=== PATIENT | female | born 1940 | race Asian ===

== ENCOUNTER 2018-11-24 16:24 | Inpatient (IN) | payer BC, OTHER ==
[~2018-11-24] VITALS: Ht 147.3 cm; Wt 49.0 kg
[2018-11-24 20:08] LABS: ABSOLUTE NEUTROPHILS 6.1 thou/uL (1.4-8.2); BASOPHILS 1.1 % (0.0-2.0); HEMATOCRIT 36.7 % (37.0-47.0); HEMOGLOBIN 12.5 gm/dL (12.0-15.0); LYMPHOCYTES 24.5 % (24.0-44.0); MCHC 33.9 g/dL (28.0-37.0); MCV 85.4 fL (80.0-100.0); MONOCYTES 3.4 % (1.0-8.0); PLATELET COUNT 215 thou/uL (150-400); RDW 12.8 % (10.5-14.5); WBC 8.6 thou/uL (4.0-11.0)
[2018-11-24 20:16] LABS: ANION GAP 10 mmol/L (7-16); BUN 20 mg/dL (7-18); CALCIUM 9.6 mg/dL (8.5-10.1); CHLORIDE 104 mmol/L (98-107); CO2 25 mmol/L (21-32); CREATININE 1.1 mg/dL (0.6-1.0); GLUCOSE 115 mg/dL (74-106); POTASSIUM 4.2 mmol/L (3.5-5.1); SODIUM 139 mmol/L (136-145)
[2018-11-24 20:31] LABS: ALBUMIN 4.1 g/dL (3.4-5.0); MAGNESIUM 2.3 mg/dL (1.8-2.4); SGOT 25 U/L (15-37); SGPT 27 U/L (30-65); TOTAL BILIRUBIN 0.8 mg/dL (<0.1-1.0); TOTAL PROTEIN 8.6 g/dL (6.4-8.2); TROPONIN-I <0.06 ng/mL (<0.06)
[2018-11-24 21:20] VITALS: BP 133/69
[2018-11-24 21:33] VITALS: BP 112/55
[2018-11-24 21:46] VITALS: BP 122/52
[2018-11-24 23:29] LABS: INR 2.6; PROTIME 26.6 Seconds (9.3-11.4)
[2018-11-25] MEDS ORDERED: AMLODIPINE BESY10 MG PO (00:17)
[2018-11-25] MEDS ORDERED: COZAAR 50 MG TA50 MG PO (00:18)
[2018-11-25] MEDS ORDERED: LOPRESSOR50 PO (00:19)
[2018-11-25] MEDS ORDERED: COUMADIN 2 MG TA2 M1 PO (00:19)
[2018-11-25] MEDS ORDERED: SIMVASTATIN40 MG PO (00:20)
[2018-11-25] MEDS ORDERED: FISH OIL 1,001000 M2 PO (00:20)
[2018-11-25] MEDS ORDERED: CENTRUM SILVER1 EAC4 PO (00:20)
[2018-11-25] MEDS ORDERED: VITAMIN D3400 UNIT PO ×2 (00:21)
[2018-11-25] MEDS ORDERED: ASPIR 8181 MG PO (00:22)
--- NOTE | 2018-11-25 02:28 | NUR ---
paitent is alert and oriented. patient is a fall risk. patients bp have been steady. patients shoulder pain improve with ice pack. CT and xray were both negative. patient is nsr on tele. patient is pending echo and carotid us. patient is resting comfortably in bed. bed alarm on. patient is progressing to gao. wc. patient is sba.
[2018-11-25 03:30] VITALS: BP 128/65
[2018-11-25 07:30] VITALS: BP 122/65
[2018-11-25 08:41] LABS: HEMATOCRIT 34.7 % (37.0-47.0); HEMOGLOBIN 11.6 gm/dL (12.0-15.0); MCH 28.8 pg (26.0-34.0); MCHC 33.5 g/dL (28.0-37.0); MCV 85.9 fL (80.0-100.0); RBC 4.05 mil/uL (4.20-5.00); RDW 12.9 % (10.5-14.5); WBC 7.1 thou/uL (4.0-11.0)
[2018-11-25 08:57] LABS: ANION GAP 9 mmol/L (7-16); BUN 13 mg/dL (7-18); CHLORIDE 106 mmol/L (98-107); CO2 25 mmol/L (21-32); GLUCOSE 98 mg/dL (74-106); POTASSIUM 3.9 mmol/L (3.5-5.1); SODIUM 140 mmol/L (136-145); TROPONIN-I <0.06 ng/mL (<0.06)
--- NOTE | 2018-11-25 11:11 | EKG ---
[place] [address] [address] [facility] [place] [address] ELECTROCARDIOGRAM REPORT Name: CARLOS MOHAN Room #: 357-P ADM IN M.R.#: [id number] ������������������ Admission: 11/24/18 ������������������ Attend Phys: Jonathan Nickerson MD Discharge: ������������������ Date of : 38 Report #: [id number] ����������������������������������������������������������������� [id number] THIS REPORT FOR: //name// [facility] ED Test Date: 2018-11-24 Test Time: 16:51:08 Pat Name: CARLOS MOHAN Department: Room: [facility] Gender: F [employer]ator: [place] : 1940 Requested By: Gene Vivas Order Number: [id number] MD: Horacio Iglesias Measurements Intervals [place] Rate: 65 P: 23 VA: 153 QRS: -4 QRSD: 97 T: 3 QT: 410 QTc: 427 Interpretive Statements Sinus rhythm Inferior infarct, old No previous ECG available for comparison Electronically Signed On 11-25-2018 11:11:09 CDT by Horacio Iglesias [email or web address] ��������������������������������������������� <ELECTRONICALLY SIGNED> ���������������������������������������� By: Horacio Iglesias MD, [facility] ��������������������������������������������� 11/25/18 1111 1651 50 Horacio Iglesias MD, FACC /EPI
--- NOTE | 2018-11-25 11:43 | 2DMMODE ---
[facility] [place] [address] 2 D/M-MODE ECHOCARDIOGRAM Name: GUSMannyCLAIRECARLOS A Room #: 357-P ADM IN M.R.#: [id number] ������������� Admission: 11/24/18 ������������� Attend Phys: Jonathan Nickerson, Discharge: ��� ������������� ��� Date of : 38 Date of Service: 11/25/18 1142 �� Report #: [id number] �������� ��������������������������������������������[id number] THIS REPORT FOR: //name// APPROVED REPORT Study performed: 11/25/2018 10:32:05 EXAM: Comprehensive 2D, Doppler, and color-flow Echocardiogram Patient Location: Bedside Room #: 357 Status: routine BSA: 1.40 HR: 74 bpm BP: 122/65 mmHg Rhythm: NSR Other Information Study Quality: Good Indications Syncope Hx: NE, PAF, HTN, HLP. 2D Dimensions RVDd: 27.93 mm IVSd: 8.17 (7-11mm) LVOT Diam: 19.16 (18-24mm) LVDd: 40.91 mm PWd: 8.17 (7-11mm) Ascending Ao: 30.98 (22-36mm) LVDs: 24.78 (25-40mm) Aortic Root: 28.57 mm Volumes Left Atrial Volume (Systole) Single Plane 4CH: 25.96 mL Single Plane 2CH: 22.55 mL LA ESV Index: 19.00 mL/m2 Aortic Valve AoV Peak Mikael.: 1.93 m/s AO Peak Gr.: 14.89 mmHg LVOT Max P.25 mmHg LVOT Max V: 1.25 m/s DOUG Vmax: 1.87 cm2 Mitral Valve E/A Ratio: 0.7 MV Decel. Time: 164.22 ms [facility] [place] [address] [address] [place] [address] 2 D/M-MODE ECHOCARDIOGRAM Name: GUSMannyCLAIRECARLOS Ilir Room #: 357-P [facility] IN ..#: [id number] ������������� Admission: 11/24/18 ������������� Attend Phys: Jonathan Nickerson, Discharge: ��� ������������� ��� Date of : 38 Date of Service: 11/25/18 1142 �� Report #: [id number] �������� ��������������������������������������������[id number] MV E Max Mikael.: 0.76 m/s MV A Mikael.: 1.15 m/s MV PHT: 47.62 ms IVRT: 64.59 ms Pulmonary Valve PV Peak Mikael.: 1.03 m/s PV Peak Gr.: 4.27 mmHg Pulmonary Vein P Vein S: 0.95 m/s P Vein A: 0.41 m/s P Vein D: 0.50 m/s P Vein A Dur.: 133.8 msec P Vein S/D Ratio: 1.90 Tricuspid Valve TR Peak Mikael.: 2.67 m/s RAP Estimate: 5.00 mmHg TR Peak Gr.: 28.48 mmHg PA Pressure: 33.00 mmHg Left Ventricle The left ventricle is normal size. There is normal LV segmental wall motion. There is normal left ventricular wall thickness. Left ventricular systolic function is normal. LVEF is 60-65%. Mild diastolic dysfunction is present (impaired relaxation pattern). Right Ventricle The right ventricle is normal size. The right ventricular systolic function is normal. Atria The left atrium size is normal. The right atrium size is normal. Aortic Valve Aortic valve is trileaflet. Mild aortic regurgitation. There is no aortic valvular stenosis. Mitral Valve The mitral valve is normal in structure. There is no mitral valve regurgitation noted. Tricuspid Valve The tricuspid valve is normal in structure. Trace tricuspid regurgitation. Estimated PAP is 30-35mmHg. Pulmonic Valve [address] [address] 2 D/M-MODE ECHOCARDIOGRAM Name: CARLOS MOHAN Room #: 357-P [facility] IN [facility]#: [id number] ������������� Admission: 11/24/18 ������������� Attend Phys: Jonathan Nickerson, Discharge: ��� ������������� ��� Date of : 38 Date of Service: 11/25/18 1142 �� Report #: [id number] �������� ��������������������������������������������[id number] The pulmonary valve is normal in structure. Trace pulmonic regurgitation. Great Vessels The aortic root is normal in size. The ascending aorta is normal in size. IVC is normal in size and collapses >50% with inspiration. Pericardium There is no pericardial effusion. <Conclusion> Left ventricular systolic function is normal. There is normal LV segmental wall motion. LVEF is 60-65%. Mild diastolic dysfunction Aortic valve is trileaflet. Mild aortic regurgitation. The mitral valve is normal in structure, no regurgitation. Trace tricuspid regurgitation. Estimated pulmonary artery pressure of 30-35mmHg. There is no pericardial effusion. ��������������������������������������������� <ELECTRONICALLY SIGNED> ���������������������������������������� By: Horacio Iglesias MD, FACC ��������������������������������������������� 11/25/18 1142 1142 1142 Horacio Iglesias MD, FACC /INF
[2018-11-25 12:18] VITALS: BP 122/67
[2018-11-25 13:23] VITALS: BP 122/67
--- NOTE | 2018-11-25 13:36 | NUR ---
ASSUMED PATIENT CARE AT 0700. A/O X4. WALKED WITHY PATIENT IN HALLWAY NO DIZZINESS. FEELS GOOD. DC TO HOME NOW.
== END 2018-11-25 13:56 | disposition home or self-care (01) | DRG 312 ==
LOC: ER 16:24 → 3W 21:02
PROVIDERS: Emergency Medicine; Nurse Practitioner; ADMIT Internal Medicine
DX: R55 Syncope and collapse (principal); N17.9 Acute kidney failure, unspecified; D68.59 Other primary thrombophilia; I25.10 Atherosclerotic heart disease of native coronary artery without angina pectoris; I10 Essential (primary) hypertension; I48.0 Paroxysmal atrial fibrillation; E78.5 Hyperlipidemia, unspecified; I25.2 Old myocardial infarction; Z95.5 Presence of coronary angioplasty implant and graft; Z79.01 Long term (current) use of anticoagulants; Z79.82 Long term (current) use of aspirin; Z79.899 Other long term (current) drug therapy
CPT/HCPCS: 10879